=== PATIENT | male | born 2000 | race Caucasian/White ===

== ENCOUNTER 2020-09-12 12:35 | Inpatient (IN) | payer OTHER ==
[~2020-09-12] VITALS: Ht 185.4 cm; Wt 81.5 kg
[2020-09-12 14:37] LABS: HEMATOCRIT 42.9 % (42.0-52.0); HEMOGLOBIN 14.4 g/dl (13.5-17.5); MEAN CORPUSCULAR HEMOGLOBIN 30.8 pg (27.0-33.0); MEAN CORPUSCULAR HGB CONC 33.6 g/dl (32.0-36.5); MEAN CORPUSCULAR VOLUME 91.7 fl (80.0-96.0); PLATELET COUNT, AUTOMATED 195 10^3/uL (150-450); RED BLOOD COUNT 4.68 10^6/uL (4.30-6.10); WHITE BLOOD COUNT 5.7 10^3/uL (4.0-10.0)
[2020-09-12 15:15] LABS: AMPHETAMINES LEVEL URINE NEGATIVE (NEGATIVE); BARBITURATES URINE NEGATIVE (NEGATIVE); BENZODIAZEPINES URINE NEGATIVE (NEGATIVE); CANNABINOIDS URINE POSITIVE (NEGATIVE); COCAINE METABOLITE URINE NEGATIVE (NEGATIVE); METHADONE URINE NEGATIVE (NEGATIVE); OPIATES URINE NEGATIVE (NEGATIVE); PHENCYCLIDINE URINE NEGATIVE (NEGATIVE)
[2020-09-12 15:15] LABS: ACETAMINOPHEN LEVEL < 2.0 UG/ML (10.0-30.0); ALBUMIN 4.5 GM/DL (3.2-5.2); ALT/SGPT 23 U/L (12-78); BILIRUBIN,DIRECT 0.1 MG/DL (0.0-0.2); BILIRUBIN,TOTAL 0.3 MG/DL (0.2-1.0); BLOOD UREA NITROGEN 12 MG/DL (7-18); CALCIUM LEVEL 9.4 MG/DL (8.5-10.1); CARBON DIOXIDE LEVEL 30 MEQ/L (21-32); CHLORIDE LEVEL 106 MEQ/L (98-107); CREATININE FOR GFR 0.96 MG/DL (0.70-1.30); ETHYL ALCOHOL (ETHANOL) < 0.003 % (0.000-0.010); GLOMERULAR FILTRATION RATE > 60.0 (>60); GLUCOSE, FASTING 92 MG/DL (70-100); POTASSIUM SERUM 4.6 MEQ/L (3.5-5.1); SALICYLATE LEVEL < 1.7 MG/DL (5.0-30.0); SODIUM LEVEL 142 MEQ/L (136-145); TOTAL PROTEIN 7.4 GM/DL (6.4-8.2)
[2020-09-13] MEDS ORDERED: ACETAMINOPHEN TAB 650MG DOSE (2X325MG) PO ONE (02:45)
[2020-09-13] MEDS ORDERED: ACETAMINOPHEN TAB 650MG DOSE (2X325MG) As Ordered ONE (02:46)
[2020-09-13] MEDS ORDERED: ACETAMINOPHEN TAB 650MG DOSE (2X325MG) PO PRN (14:15)
[2020-09-13] MEDS ORDERED: MOM 30ML SUSPENSION UDC PO PRN (14:15)
[2020-09-13] MEDS ORDERED: MAALOX 30 ML SUSP *UDC PO PRN (14:15)
[2020-09-13] MEDS ORDERED: LORazepam 2 MG TAB PO PRN (16:45)
[2020-09-13 16:46] VITALS: BP 146/78
[2020-09-13 16:54] VITALS: BP 146/78
[2020-09-13] MEDS: THIAMINE 100 MG TAB PO SCH (17:59)
[2020-09-13] MEDS: traZODone 50 MG TAB PO PRN (21:23)
[2020-09-14 06:19] VITALS: BP 134/62
[2020-09-14] MEDS ORDERED: FOLIC ACID 1 MG TAB PO SCH (09:00)
[2020-09-14] MEDS ORDERED: MULTIVITAMINS/MINERALS THERAP 1 TAB PO SCH (09:00)
[2020-09-14] MEDS: THIAMINE 100 MG TAB PO SCH ×2 (09:38→21:03)
[2020-09-14] MEDS: NICOTINE 14 MG/24 HR TRANSDERMAL TD SCH (09:38)
--- NOTE | 2020-09-14 11:02 | MHHPEPDOC ---
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 He states that they look at him differently than anyone else and make him do more work. Patient states he is going crazy and cant take much morePatient denies hallucinations and suicidal tendencies or thoughts. SOCIAL HISTORY - SUBSTANCE USE: Patient states cutting down his consumption to every other day to every other three days. Objective Appearance: Well groomed. Appears to be stated age. Well nourished. Behavior: Constricted. Affect: Full range. Appropriate to context. Mood: Euthymic. Generally good. Appropriately reactive. Speech: Spontaneous and Fluid. Normal rate. Normal volume. Motor: No gross motor abnormalities. Cognition: Alert, Attentive, and Oriented to person, place, time. Memory: No gross abnormalities of short or mcc memory noted during interview. No formal testing. Thought Form: Linear and goal directed. Thought Content: No evidence of aggressive or homicidal ideation. No evidence of suicidal ideation. No evidence of delusions. No thoughts of self harm. Perception: No perceptual abnormalities noted. Judgement: Poor. Insight: Poor. 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 Treat patient for the next several days. LOS 3-5 days Tx: 1. risk for suicide 2. Ineffective coping Vital Signs Vital Signs Date Time Temp Pulse Resp B/P (MAP) Pulse Ox O2 Delivery O2 Flow Rate FiO2 09/14/20 06:19 98.1 63 16 134/62 (86) 95 Room Air Medications No Active Prescriptions or Reported Meds Allergies Coded Allergies: No Known Allergies (Unverified , 09/12/20) RODERICK BOWERS DO Sep 14, 2020 11:02
[2020-09-14] MEDS ORDERED: SERTRALINE HCL 25 MG TABLET PO ONE (12:30)
--- NOTE | 2020-09-14 16:08 | HPEPDOC ---
General Date of Admission Sep 13, 2020 at 14:15 Date of Service: Sep 14, 2020 Chief Complaint The patient is a 20-year-old male admitted with a reason for visit of Unspecified Depressive Do. Source: Patient Exam Limitations: No limitations Timing/Duration: Week(s) Severity: Mild History of Present Illness Patient is 20 years old male without significant past mental history presented to the hospital with suicidal ideation. He stated that he was recently under stress situations in the [employer] because of increased responsibilities. He started feeling depressed around few months ago and finally ended up with suicidal ideation. Patient denies fever, chills, nausea, vomiting, diarrhea or dysuria Home Medications No Active Prescriptions or Reported Meds Allergies Coded Allergies: No Known Allergies (Unverified , 09/12/20) Past Medical History Medical History No significant medical history Family History Patient stated that both parents are healthy Social History * Smoker: current smoker Alcohol: heavy Drugs: marijuana A-FIB/CHADSVASC A-FIB History Current/History of A-Fib/PAF?: No Current PO Anticoag Therapy: No Review of Systems Constitutional: Denies: Chills, Fever Eyes: Denies: Pain ENT: Denies: Head Aches Skin: Denies: Rash Pulmonary: Denies: Dyspnea Cardiovascular: Denies: Chest Pain Gastrointestinal: Denies: Nausea, Vomiting Genitourinary: Denies: Dysuria Hematologic: Denies: Bruising Endocrine: Denies: Polydipsia Musculoskeletal: Denies: Neck Pain Neurological: Denies: Weakness Psych: Reports: Depression Physical Examination General Exam: Positive: Alert, Cooperative Eye Exam: Positive: PERRLA ENT Exam: Positive: Atraumatic Neck Exam: Positive: Supple; Negative: JVD Chest Exam: Positive: Clear to auscultation Heart Exam: Positive: Rate Normal Telemetry: Positive: No significant arrhythmia Abdomen Exam: Positive: Normal bowel sounds Extremity Exam: Negative: Clubbing Skin Exam: Positive: Nl turgor and temperature Neuro Exam: Positive: Normal Gait, Strength at 5/5 X4 ext Psych Exam: Positive: Oriented x 3 Vital Signs Vital Signs Date Time Temp Pulse Resp B/P (MAP) Pulse Ox O2 Delivery O2 Flow Rate FiO2 09/14/20 06:19 98.1 63 16 134/62 (86) 95 Room Air Assessment/Plan Patient is 20 years old male without significant past mental history presented to the hospital with suicidal ideation. He stated that he was recently under stress situations in the [employer] because of increased responsibilities. He started feeling depressed around few months ago and finally ended up with suicidal ideation. Patient denies fever, chills, nausea, vomiting, diarrhea or dysuria Problems (1) Suicidal ideation Status: Acute Problem Text: Defer treatment to psych team Plan / VTE VTE Prophylaxis Ordered?: No VTE Exclusion Mechanical Proph: Low Risk for VTE ARELY GUIDO DO Sep 14, 2020 16:08
[2020-09-14 18:16] VITALS: BP 147/70
[2020-09-14] MEDS: traZODone 50 MG TAB PO PRN (21:03)
[2020-09-15 06:25] VITALS: BP 139/60
--- NOTE | 2020-09-15 08:52 | ECGEPIP ---
[facility] - ED Test Date: 2020-09-12 Pat Name: TENZIN HENRIQUEZ Department: Room: [place] [address] Gender: Male [employer] Developer: blanche : [id number] Requested By: Meir Benitez Order Number: [id number] Reading MD: Eva Coronado Measurements Intervals [place] Rate: 47 P: 63 SD: 146 QRS: 74 QRSD: 106 T: 53 QT: 393 QTc: 348 Interpretive Statements SINUS BRADYCARDIA WITH SINUS ARRHYTHMIA POSSIBLE RIGHT VENTRICULAR CONDUCTION DELAY No prior Electronically Signed on 09-15-2020 8:52:13 EST by Eva Coronado
[2020-09-15] MEDS: NICOTINE 14 MG/24 HR TRANSDERMAL TD SCH (09:00)
[2020-09-15] MEDS: SERTRALINE HCL 25 MG TABLET PO SCH (09:50)
--- NOTE | 2020-09-15 10:08 | MHIPNPDOC ---
[facility] Progress Note Progress Note DATE OF SERVICE: 09/15/20 HPI: Patient has met with today. He reports that he has been feeling somewhat better. He reports hes thinking about how hell handle difficulties once hes back in the . MEDICATIONS: He reports no problems with is Zoloft and otherwise has been social on the unit engage with others on the object. Objective Appearance: Well nourished. Well groomed. Appears to be stated age. Behavior: Pleasant. Engaged. Cooperative with good eye contact. Affect: Appropriate to context. Full range. Mood: Appropriately reactive. Generally good. Euthymic. Speech: Normal rate. Normal volume. Spontaneous and Fluid. Motor: No gross motor abnormalities. Cognition: Alert, Attentive, and Oriented to person, place, time. Memory: No gross abnormalities of short or assisted memory noted during interview. No formal testing. Thought Form: Linear and goal directed. Thought Content: No evidence of delusions. No evidence of aggressive or homicidal ideation. No evidence of suicidal ideation. No thoughts of self harm. Perception: No perceptual abnormalities noted. Judgement: Intact as evidenced by decision making in the recent past. Insight: Good insight into symptoms and treatment options. 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 Potential discharge on Friday. Vital Signs Vital Signs Date Time Temp Pulse Resp B/P (MAP) Pulse Ox O2 Delivery O2 Flow Rate FiO2 09/15/20 06:25 97.7 65 12 139/60 (86) Room Air 09/14/20 06:19 95 Current Medications Current Medications Medications (Trade) Dose Ordered Sig/Katlyn Route PRN Reason Start Time Stop Time Status Last Admin Dose Admin Acetaminophen (Tylenol Tab) 650 mg Q6HP PRN PO HEADACHE or DISCOMFORT 09/13/20 14:15 Al Hydrox/Mg Hydrox/Simethicone (Mylanta) 30 ml Q4HP PRN PO HEARTBURN/INDIGESTION 09/13/20 14:15 Folic Acid (Folic Acid) 1 mg DAILY PO 09/14/20 09:00 09/14/20 21:51 DC 09/14/20 09:38 Home Med (Med Rec Complete!) ASDIRECTED XX 09/12/20 19:00 09/12/20 18:47 DC Lorazepam (Ativan) 2 mg ASDIRECTED PRN PO SEE PROTOCOL 09/13/20 16:45 Cancel Magnesium Hydroxide (Milk Of Magnesia) 30 ml DAILYPRN PRN PO CONSTIPATION 09/13/20 14:15 Multivitamins (Theragram-M) 1 tab DAILY PO 09/14/20 09:00 09/14/20 21:51 DC 09/14/20 09:38 Nicotine (Nicoderm Cq 14mg) 1 patch DAILY TD 09/14/20 09:00 09/14/20 09:38 Sertraline HCl (Zoloft) 25 mg DAILY PO 09/15/20 09:00 09/15/20 09:50 Thiamine HCl (Thiamine HCl) 100 mg BID PO 09/13/20 17:00 09/14/20 21:51 DC 09/14/20 21:03 Trazodone HCl (Desyrel) 50 mg QHSP PRN PO INSOMNIA 09/13/20 14:15 09/14/20 21:03 Allergies Coded Allergies: No Known Allergies (Unverified , 09/12/20) RODERICK BOWERS DO Sep 15, 2020 10:08
[2020-09-15] MEDS ORDERED: hydrOXYzine 25 MG TAB PO PRN (13:45)
[2020-09-15 18:41] VITALS: BP 131/73
[2020-09-16 07:09] VITALS: BP 145/79
[2020-09-16] MEDS: NICOTINE 14 MG/24 HR TRANSDERMAL TD SCH (09:00)
[2020-09-16] MEDS: SERTRALINE HCL 25 MG TABLET PO SCH (09:46)
[2020-09-16 17:45] VITALS: BP 134/62
[2020-09-16] MEDS: diphenhydrAMINE 50MG CAP PO PRN (23:27)
[2020-09-17 06:52] VITALS: BP 127/79
[2020-09-17] MEDS: NICOTINE 14 MG/24 HR TRANSDERMAL TD SCH (09:00)
[2020-09-17] MEDS: SERTRALINE HCL 25 MG TABLET PO SCH (09:43)
[2020-09-17 18:51] VITALS: BP 119/64
[2020-09-17] MEDS: diphenhydrAMINE 50MG CAP PO PRN (22:05)
[2020-09-18 06:26] VITALS: BP 126/76
--- NOTE | 2020-09-18 07:41 | MHIPN ---
PSYCHIATRIC DATE: 09/16/2020 Patient today states, "I'm doing pretty good." He says he is not suicidal. He says that he has chronic sleep problems. He tried trazodone, but it gave him a headache. He tried Benadryl before, actually Tylenol PM, and he finds that helps him to sleep better. MENTAL STATUS EXAMINATION: He is alert and oriented times three. He is pleasant and cooperative, verbal spontaneous. There is no formal thought disorder. Mood is good. Affect appropriate to mood. He is not psychotic, suicidal, homicidal. Concentration is fair. Memory intact. Insight and judgment are fair. DIAGNOSES: 1. Adjustment disorder with depressed mood. 2. Alcohol use disorder. TREATMENT PLAN: At this point, we will continue to monitor the patient for continued elevation and stabilization of his mood and continued resolution of suicidal ideation. CHELSY
[2020-09-18] MEDS: NICOTINE 14 MG/24 HR TRANSDERMAL TD SCH (09:00)
[2020-09-18] MEDS: SERTRALINE HCL 25 MG TABLET PO SCH (09:23)
[2020-09-18] MEDS ORDERED: SERT25TA21 PO (10:49)
[2020-09-18] MEDS ORDERED: DIPH50CA PO (10:49)
--- NOTE | 2020-09-18 15:38 | MHDSPDOC ---
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 He reports that he has been feeling depressed, due to being chaptered out of the due to his marijuana use and poor conduct. 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 He felt that they look at him differently than anyone else and make him do more work. Patient stated that he is going crazy and couldn't take much more. CONSULTANTS INVOLVED: See Medical H + P by Medical Provider TREATMENT AND PROGRESS ON THE UNIT : Patient was admitted to the [facility] on a legal status he was afforded the following treatment modalities: 1) Individual Therapy 2) Group Therapy 3) Medication Management 4) Milieu Therapy 5) Safe Environment HOSPITAL COURSE: Patient was admitted to [facility] on a . According to staff patient reported no suicidal ideation, no homicidal ideation, planning or intent. He was calm and cooperative in the milieu and attended groups. Patient had complained of sleep and stated that the Trazodone caused a headache, Benadryl 50 qhs was ordered and he reported this was effective. States feeling less depressed. Denied suicidal thoughts. Patient started on a low dose of Zoloft 25 mg which he reports no adverse effects. DISCHARGE ASSESSMENT: Patient he states he is hopefully leaving the before and plans to move home to [place] and file bankruptcy as he states he is in a lot of debt. While he is being chaptered out, he states that this is a good thing because he wants to return home. He is not observed with depression or anxiety on interview. Denies thoughts of self harm. Alert and oriented x 3. 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 In today's interview he is alert and oriented, dressed appropriately, wearing hospital scrubs. Smiles on approach. He was agreeable to meet and was asked to leave the group session in order to discuss his discharge today. Speech: Is spontaneous and more linear, normal rate, tone and volume Language skills intact Thought processes including: linear, reality based, goal oriented Thought content: denies depression, denies anxiety, denies suicidal/homicidal ideation. Abstract reasoning, and computation: Good Description of associations: None observed, patient denies Description of abnormal or psychotic thoughts: None observed, patient denies Judgment: fair Insight: fair Judgement: fair Orientation: alert and oriented to self, person, place and time Recent and remote memory: intact Attention span and concentration: good Language: expansive Fund of knowledge: average Mood: euthymic. Affect: reactive MEDICATIONS ON DISCHARGE: See Discharge Medication Reconciliation List PLAN/FOLLOWUP ARRANGEMENTS: [place] The amount of time spent in the coordination of care for this patient was approximately 20 minutes. Vital Signs/I&Os Vital Signs Date Time Temp Pulse Resp B/P (MAP) Pulse Ox O2 Delivery O2 Flow Rate FiO2 09/18/20 06:26 98.5 61 16 126/76 (93) 97 Room Air Medications Scheduled Sertraline HCl (Sertraline HCl) 25 Mg Tablet, 25 MG PO DAILY for Depression, #7 Scheduled PRN Diphenhydramine HCl (Diphenhydramine HCl) 50 Mg Capsule, 50 MG PO QHSP PRN for INSOMNIA, #7 Allergies Coded Allergies: No Known Allergies (Unverified , 09/12/20) MASSIMO VELÁZQUEZ SENIOR [employer]IA BUYER Sep 18, 2020 11:06
--- NOTE | 2020-09-21 08:52 | MHIPN ---
DATE: 09/17/2020 The patient today states that he is doing better. He says he slept better with Benadryl last night. He has no complaints. MENTAL STATUS EXAMINATION: This patient is alert and oriented times three. The patient is pleasant and cooperative, verbally spontaneous. There is no formal thought disorder noted. Mood is good. Affect appropriate to mood. He is not psychotic, suicidal, homicidal. Concentration is fair. Memory intact. Insight and judgment fair. DIAGNOSES: 1. Adjustment disorder with depressed mood. 2. Alcohol use disorder. TREATMENT PLAN: At this point, we will continue to monitor the patient for continued elevation and stabilization of his mood and continued resolution of any suicidal ideation. CHELSY
== END 2020-09-18 14:15 | disposition home or self-care (01) | DRG 882 ==
LOC: M ED 12:35 → M ED INP 09-13 14:15 → M PSY 09-13 16:38
PROVIDERS: ADMIT Psychiatry & Neurology Addiction Medicine; ATTEND Psychiatry & Neurology Psychiatry
DX: F43.25 Adjustment disorder with mixed disturbance of emotions and conduct (principal); R45.851 Suicidal ideations; F10.94 Alcohol use, unspecified with alcohol-induced mood disorder; F60.89 Other specific personality disorders; Z91.82 Personal history of military deployment; F17.200 Nicotine dependence, unspecified, uncomplicated

== ENCOUNTER 2020-11-07 19:29 | Emergency (ER) | payer OTHER ==
[~2020-11-07] VITALS: Ht 185.4 cm; Wt 80.6 kg
[~2020-11-07 19:29] MED LIST: DIPH50CA PO; SERT25TA21 PO
[2020-11-07 19:30] VITALS: BP 131/72
[2020-11-07] MEDS ORDERED: MUPIROCIN 2% OINT 22 GM TUBE TOP ONE (20:00)
[2020-11-07] MEDS ORDERED: MUPI2OI TOP (20:03)
== END 2020-11-07 20:00 | disposition home or self-care (01) ==
LOC: M ED 19:29
DX: L01.00 Impetigo, unspecified (principal); Z79.899 Other long term (current) drug therapy; F17.210 Nicotine dependence, cigarettes, uncomplicated